=== PATIENT | female | born 1995 | race Caucasian/White ===

== ENCOUNTER 2023-11-30 22:30 | Inpatient (IN) | payer BC, SELFPAY ==
[2023-11-30 22:54] VITALS: BMI 29.9
[2023-11-30 22:55] VITALS: BP 130/72
[2023-11-30] MEDS: LR 1000 IV (23:30)
[2023-11-30 23:52] LABS: % Basophils 0.2 % (0-2); % Eosinophils 0.1 % (0-6); % Immature Granulocytes 0.5 % (0-0.5); % Monocytes 2.6 % (1.7-9.3); % Neutrophils 89.6 % (42.2-75.2); Absolute Immature Granulocytes 0.1 10^3/uL (0-0.05); Absolute Monocytes 0.4 10^3/uL (0.1-0.6); Absolute Neutrophils 13.3 10^3/uL (1.4-6.5); Hematocrit 29.8 % (37.0-47.0); Hemoglobin 10.7 g/dL (12.0-16.0); Mean Corp Hgb Conc. 35.9 g/dL (33.0-37.0); Mean Corpuscular Hgb 28.1 pg (27.0-31.0); Mean Corpuscular Volume 78.2 fL (81.0-99.0); Mean Platelet Volume 10.9 fL (7.4-10.4); Nucleated Red Blood Cells % 0 %; Platelet Count 252 10^3/uL (130-400); Red Blood Cell Count 3.81 10^6/uL (4.20-5.40); Red Cell Dist. Width 13.6 % (11.5-14.5); White Blood Cell Count 14.8 10^3/uL (4.8-10.8)
[2023-12-01] MEDS: FENTANYL/BUPIVACAINE 100 EPIDURAL (00:35)
[2023-12-01] MEDS: SUBLIMAZE 100 MCG EPIDURAL (00:35)
[2023-12-01] MEDS: LR 1000 IV (01:33)
[2023-12-01] MEDS: PITOCIN 30 UNITS/NSS 500 ML IV (02:38)
[2023-12-02 05:12] LABS: Hematocrit 26.1 % (37.0-47.0)
[2023-12-02] MEDS: SENOKOT-S 1 TABLET PO (07:51)
[2023-12-02] MEDS: PRENATAL PLUS 1 TABLET PO (07:52)
[2023-12-02 17:14] LABS: Syphilis/T. pallidum Ab Reflex Negative (Negative)
[2023-12-03] MEDS: PRENATAL PLUS 1 TABLET PO ×2 (09:19→09:20)
[2023-12-03] MEDS: SENOKOT-S 1 TABLET PO (09:19)
[2023-12-03] MEDS: FEOSOL 325 MG PO (09:19)
== END 2023-12-03 11:56 | disposition home or self-care (01) | DRG 807 ==
LOC: LDRP 22:30
PROVIDERS: Obstetrics & Gynecology; ADMITTING PHYSICIAN Obstetrics & Gynecology
PROC: 10E0XZZ Delivery of Products of Conception, External Approach (ICD-10-PCS; 2023-12-01)
PROC: 0HQ9XZZ Repair Perineum Skin, External Approach (ICD-10-PCS; 2023-12-01)
DX: O77.0 Labor and delivery complicated by meconium in amniotic fluid (principal); Z37.0 Single live birth; Z3A.39 39 weeks gestation of pregnancy; O69.81X0 Labor and delivery complicated by cord around neck, without compression, not applicable or unspecified; O70.0 First degree perineal laceration during delivery
CPT/HCPCS: 36415; 85014; 85018; 85025; 86780; 86850; 86900; 86901